=== PATIENT | male | born 1955 | race Caucasian/White ===

== ENCOUNTER 2024-04-23 23:40 | Emergency (ER) | payer SELFPAY ==
[~2024-04-23] VITALS: Ht 172.7 cm; Wt 91.0 kg
[2024-04-24 00:02] VITALS: TEMP 98.1; O2SAT 98
[2024-04-24 01:25] VITALS: BP 90/61; PULSE 56; RESP 17; O2SAT 98
== END 2024-04-24 01:29 | disposition home or self-care (01) ==
LOC: ER 23:40
DX: T51.0X1A Toxic effect of ethanol, accidental (unintentional), initial encounter (principal); X58.XXXA Exposure to other specified factors, initial encounter
CPT/HCPCS: 99283